=== PATIENT | male | born 1960 | race Hispanic/Latino ===

== ENCOUNTER 2023-11-23 11:51 | Emergency (ER) | payer OTHER ==
[2023-11-23] MEDS ORDERED: Cefepime 2 GM VIAL ONE (13:02)
[2023-11-23] MEDS ORDERED: Ondansetron PF 4 MG/2 ML Vial ONE (13:02)
[2023-11-23] MEDS ORDERED: Morphine 4 MG/ML VIAL ONE (13:02)
[2023-11-23] MEDS ORDERED: Vancomycin 1 GM/200 ML (FROZEN) BAG ONE (13:03)
[2023-11-23] MEDS ORDERED: Sodium Chloride 0.9% 100 ML ONE (13:03)
[2023-11-23 13:13] LABS: #Eosinphils 0.1 thou/uL (0.0-0.7); #Monocytes 0.6 thou/uL (0.11-0.59); #Neutrophils 6.2 thou/uL (1.40-6.50); %Basophils 0.2 % (0.0-1.0); %Lymphocytes 19.7 % (21.0-51.0); %Monocytes 6.8 % (0.0-10.0); %Neutrophils 71.8 % (42.0-75.0); Hematocrit 41.3 % (42.0-52.0); Hemoglobin 14.5 g/dL (14.0-18.0); Mean Corpuscular HGB CONC 35.1 g/dL (32.0-36.0); Mean Corpuscular Hemoglobin 29.8 pg (27.0-31.0); Mean Platelet Volume 8.5 fL (7.4-10.4); Platelet Count 162 10x3/uL (130-400); RBC Distribution Width 12.8 % (11.5-14.5); Red Blood Cell (RBC) Count 4.86 mill/uL (4.70-6.10); White Blood Cell (WBC) Count 8.7 10x3/uL (4.8-10.8)
[2023-11-23 14:04] LABS: ALT (SGPT) 19 U/L (8-55); AST (SGOT) 16 U/L (5-34); Albumin 4.4 g/dL (3.4-4.8); Alkaline Phosphatase 119 U/L (40-110); Anion Gap 11 mmol/L (10-20); BUN (Urea Nitrogen) 14 mg/dL (8.4-25.7); Bilirubin, Total 0.4 mg/dL (0.2-1.2); Calc. Creatinine Clearance 0 mL/min (70-130); Calcium 9.2 mg/dL (7.8-10.44); Carbon Dioxide 25 mmol/L (23-31); Chloride 105 mmol/L (98-107); Estimated GFR 70; Globulin 3.4 g/dL (2.4-3.5); Glucose 164 mg/dL (80-115); Potassium 4.3 mmol/L (3.5-5.1); Protein, Total 7.8 g/dL (5.8-8.1); Sodium 137 mmol/L (136-145)
[2023-11-23] MEDS ORDERED: Vancomycin (BATCH) 2 GM/500 ML BAG ONE (14:58)
[2023-11-23] MEDS ORDERED: Ketorolac Tromethamine 30 MG (1 mL) VIAL ONE (16:29)
== END 2023-11-23 22:56 | disposition short-term general hospital (02) ==
LOC: ERS 11:51 → EEVIPCON 11:51 → ERS 22:56
DX: M86.171 Other acute osteomyelitis, right ankle and foot (principal); E11.621 Type 2 diabetes mellitus with foot ulcer; L97.519 Non-pressure chronic ulcer of other part of right foot with unspecified severity; E78.00 Pure hypercholesterolemia, unspecified; I10 Essential (primary) hypertension; Z79.899 Other long term (current) drug therapy; Z79.84 Long term (current) use of oral hypoglycemic drugs
CPT/HCPCS: 36415; 80053; 83605; 85025; 86140; 87040; 87070; 87077; 87186; 87205; 93005; 96365; 96375; J0692; J1885; J2270; J2405; J3370; J3370-JW; J3490